=== PATIENT | male | born 1960 | race Caucasian/White ===

== ENCOUNTER → 2019-07-24 08:51 | Outpatient (CLI) | payer OTHER, SELFPAY ==
[2019-07-24 10:57] LABS: Alanine Aminotransferase 36 IU/L (<50); Albumin 4.4 g/dL (3.5-5.0); Albumin Globulin Ratio 1.4 (1.0-2.8); Alkaline Phosphatase 56 U/L (38-126); Aspartate Aminotransferase 29 IU/L (17-59); BUN Creatinine Ratio 26.3 (6-22); Bilirubin Total 0.8 mg/dL (0.2-1.3); Blood Urea Nitrogen 21 mg/dL (9-20); Calcium 9.4 mg/dL (8.4-10.2); Carbon Dioxide 30 mmol/L (22-32); Chloride 103 mmol/L (98-107); Cholesterol 213 mg/dL (140-199); Estimated Glomerular Filt Rate > 60.0 mL/min (>60); Globulin 3.2 g/dL (1.7-4.1); Glucose 134 mg/dL (70-100); HDL Cholesterol 45 mg/dL (40-60); HEMOLYSIS < 15 (0-50); LDL Cholesterol Calculated 153 mg/dL (<100); Sodium 141 mmol/L (137-145); Total Protein 7.6 g/dL (6.3-8.2); Triglycerides 75 mg/dL (35-150)
[2019-07-29 13:54] LABS: PSA Free % 20 % (calc) (> 25); PSA, Total 1.5 ng/mL (< 4.1)
== END ==
PROVIDERS: Family Provider Internal Medicine; PCP Internal Medicine; Referring Provider Internal Medicine; Visit Provider Internal Medicine
DX: R03.0 Elevated blood-pressure reading, without diagnosis of hypertension (principal); N40.1 Benign prostatic hyperplasia with lower urinary tract symptoms
CPT/HCPCS: 36415; 80053; 80061; 84153; 84154

== ENCOUNTER → 2019-09-24 13:01 | Outpatient (CLI) | payer OTHER, SELFPAY ==
[2019-09-24 13:44] LABS: Hemoglobin A1C% w Est Avg Glu 5.8 % (4.0-6.0)
== END ==
PROVIDERS: Family Provider Internal Medicine; PCP Internal Medicine; Referring Provider Internal Medicine; Visit Provider Internal Medicine
DX: R73.9 Hyperglycemia, unspecified (principal)
CPT/HCPCS: 36415; 83036

== ENCOUNTER → 2020-07-29 09:32 | Outpatient (CLI) | payer OTHER, SELFPAY ==
[2020-07-29 11:35] LABS: Appearance Urine UA CLEAR; Bilirubin Urine UA NEGATIVE (NEGATIVE); Color Urine UA YELLOW; Glucose Urine UA NEGATIVE (Negative); Ketones Urine UA NEGATIVE (NEGATIVE); Leukocyte Esterase Urine UA NEGATIVE (NEGATIVE); Nitrite Urine UA NEGATIVE (Negative); Occult Blood Urine UA NEGATIVE (Negative); Protein Urine UA NEGATIVE (Negative); Urobilinogen Urine UA 0.2 E.U./dL (0.2)
[2020-07-29 11:39] LABS: Alanine Aminotransferase 52 IU/L (<50); Albumin 4.2 g/dL (3.5-5.0); Albumin Globulin Ratio 1.4 (1.0-2.8); Alkaline Phosphatase 70 U/L (38-126); Aspartate Aminotransferase 36 IU/L (17-59); BUN Creatinine Ratio 27.2 (6-22); Bilirubin Total 0.4 mg/dL (0.2-1.3); Blood Urea Nitrogen 22 mg/dL (9-20); Calcium 9.3 mg/dL (8.4-10.2); Carbon Dioxide 29 mmol/L (22-32); Chloride 101 mmol/L (98-107); Cholesterol 185 mg/dL (140-199); Estimated Glomerular Filt Rate > 60.0 mL/min (>60); Glucose 110 mg/dL (80-110); HDL Cholesterol 44 mg/dL (40-60); HEMOLYSIS < 15 (0-50); LDL Cholesterol Calculated 122 mg/dL (<100); Potassium 4.5 mmol/L (3.4-5.1); Sodium 137 mmol/L (137-145); Total Protein 7.2 g/dL (6.3-8.2); Triglycerides 93 mg/dL (35-150)
[2020-07-29 12:10] LABS: Prostate Specific Antigen Scrn 1.71 ng/mL (0.1-4.0)
[2020-07-29 12:13] LABS: Hematocrit 42.8 % (41-53); Hemoglobin 14.8 g/dL (13.5-17.5); Mean Corpuscular HGB Conc 34.5 % (30-36); Mean Corpuscular Hemoglobin 28.4 PG (26-34); Mean Corpuscular Volume 82.3 fL (80-100); Platelet Count 295 X10^3/uL (150-400); Red Cell Distribution Width 13.2 % (11.6-14.8); White Blood Cell Count 3.9 X10^3/uL (4.5-11.0)
[2020-07-29 12:15] LABS: Add Manual Diff / Slide Review YES
[2020-07-29 12:40] LABS: Neutrophils Absolute Manual 2145 /uL (3000-5900); Total Cells Counted 100
[2020-07-29 12:41] LABS: Smudge Cells 1+
== END ==
PROVIDERS: Family Provider Internal Medicine; PCP Registered Nurse; Referring Provider Registered Nurse; Visit Provider Registered Nurse
DX: R35.0 Frequency of micturition (principal); N40.0 Benign prostatic hyperplasia without lower urinary tract symptoms; R73.01 Impaired fasting glucose; Z00.00 Encounter for general adult medical examination without abnormal findings; Z12.5 Encounter for screening for malignant neoplasm of prostate; E78.5 Hyperlipidemia, unspecified
CPT/HCPCS: 36415; 80053; 80061; 81003; 85007; 85025; G0103

== ENCOUNTER → 2020-08-18 07:41 | Outpatient (CLI) | payer OTHER, SELFPAY ==
[2020-08-18] MEDS: COVID-19 VACC #1, MRNA(MOD) 100 MCG/0.5 ML VIAL IM (07:48)
== END ==
PROVIDERS: Family Provider Internal Medicine; PCP Registered Nurse; Visit Provider Internal Medicine
DX: Z23 Encounter for immunization (principal)
CPT/HCPCS: 0011A; 91301

== ENCOUNTER → 2020-09-15 07:47 | Outpatient (CLI) | payer OTHER, SELFPAY ==
[2020-09-15] MEDS: COVID-19 VACC #2, MRNA(MOD) 100 MCG/0.5 ML VIAL IM (07:54)
== END ==
PROVIDERS: Family Provider Internal Medicine; PCP Registered Nurse; Visit Provider Internal Medicine
DX: Z23 Encounter for immunization (principal)
CPT/HCPCS: 0012A; 91301

== ENCOUNTER → 2020-09-20 08:58 | Outpatient (CLI) | payer OTHER, SELFPAY ==
[2020-09-20 13:21] LABS: COVID19 -Nasal RAPID Negative (Negative)
== END ==
PROVIDERS: Family Provider Internal Medicine; PCP Registered Nurse; Visit Provider Surgery
DX: Z20.822 Contact with and (suspected) exposure to COVID-19 (principal)
CPT/HCPCS: 87635; C9803

== ENCOUNTER 2020-09-21 08:07 | Day surgery (SDC) | payer OTHER, SELFPAY ==
--- NOTE | 2020-09-21 | PATH_ITS ---
[facility] Accession Number: [id number] . 01 Material submitted: . PART A: cecum - CECAL POLYP PART B: colon - POLYP 80CM . 02 Diagnosis: A. Cecal Polyp: Portion of tubular adenoma x1. Portion of hyperplastic polyp x1. . B. Polyp at 80 cm, Biopsy: Portions of tubular adenoma x2. Superficial portion of colorectal mucosa x1 with no significant histomorphologic abnormality. [facility] 09/27/2020 1134 Local . 02 Electronically signed: . Chasity Ahmadi MD, Pathologist NPI- [id number] . 01 Gross description: . Part A: CECAL POLYP: Received in formalin are 2 fragment(s) of judge, soft tissue measuring 0.6 x 0.3 x 0.2 cm to 0.8 x 0.4 x 0.3 cm submitted entirely in 1 cassette(s) Part B: POLYP 80CM: Received in formalin are 3 fragment(s) of judge, soft tissue measuring 0.2 x 0.2 x 0.2 cm to 0.4 x 0.3 x 0.2 cm submitted entirely in 1 cassette(s) /JENNIFER 09/22/20202025 Local . 02 Pathologist provided ICD-10: Z12.11, Z86.010, K63.5 . 02 CPT . 622380, [id number] Performed at: 01 [facility] [address] [facility], [place], [place] [id number] MD Layo Howard MD Phone: [phone] Performed at: 02 [facility] [place] [address] [place], [place] [id number] MD Heather Lerma MD Phone: [phone]
[2020-09-21 08:18] VITALS: BP 127/83; PULSE 66; RESP 16; TEMP 36.3; O2SAT 98; BMI 29.8
[2020-09-21] MEDS: SODIUM CHLORIDE 0.9% 1,000 ML 200 ML IV (08:42)
[2020-09-21 08:51] VITALS: BMI 29.8
--- NOTE | 2020-09-21 09:09 | P.HP_ITS ---
History of Present Illness History of Present Illness Date Patient Seen: 09/21/20 Time Patient Seen: 09:09 Chief complaint: DX COLONOSCOPY Narrative: This is a 60-year-old man who is here for a screening colonoscopy. He had his last prior colonoscopy 10 years ago. Two small benign polyps were found and removed. Occasionally has some blood in the stool off and on for about the past year. He denies any rectal pain or any hemorrhoidal swellings. He denies any melena, unexplained abdominal pain, unexplained weight loss. He denies any known family history of colon cancer or colon diseases, but his mother recently from liver disease which he believes began in the colon. ROS: Thirteen system review is otherwise negative other than as mentioned below and in HPI. PE: GENERAL: Well groomed and cooperative. Appears stated age. Answers questions promptly and appropriately. Vital signs noted. HENT: Normocephalic, atraumatic. Hearing intact. EYES: Conjunctiva pink, sclera white, no periorbital swelling. CARDIOVASCULAR: Regular rate. No pedal edema. RESPIRATORY: Non-tachypneic, breathing comfortably on room air. GASTROINTESTINAL: Abdomen soft and non-distended GENITALURINARY: No flank tenderness. MUSCULOSKELETAL: Equal tone and mass bilaterally. SKIN: Warm, dry, soft, appropriate color for ethnicity. No other lesions, rashes, or wounds. NEURO: Alert and Oriented X 3. No gross sensory deficits, or cognitive issues. PSYCH: Appropriate affect and mood. Patient History Medical History Chicken pox (~1967) Headache (~1989) Measles (~1965) Mumps (~1966) Partial blindness (~1959) Plantar warts (~1971) Surgical History Anesthesia History of eye surgery [place] teeth removed (~1973) Family & Social History Family History Father Cancer History of heart disease Mother Cancer Diabetes mellitus Grandfather History of heart disease Grandfather History of heart disease Grandmother History of heart disease Social History: household members spouse Tobacco & Substance use: Smoking Status Never smoker alcohol intake current alcohol intake frequency a few times a week Substance Use Type does not use Meds Home Medications and Allergies Allergies Allergy/AdvReac Type Severity Reaction Status Date / Time No Known Drug Allergies Allergy Verified 09/21/20 08:16 Exam Vital Signs (past 8 hours): - 09/21/20 08:18 Temperature 97.3 F L Pulse Rate 66 Respiratory Rate 16 Blood Pressure 127/83 Pulse Oximetry 98 Oxygen Delivery Method Room Air Assessment & Plan Assessment and plan (1) History of colon polyps: Status: Chronic Assessment & Plan narrative: Risks and benefits of screening colonoscopy and possible polypectomy were discussed with the patient including risk of bleeding, perforation, need for additional procedures, risks of anesthesia. The patient desires to proceed with the colonoscopy procedure. COVID-19 COVID-19 status: Negative Result date/Date tested (Pos, Neg/Pending): 09/20/20 Time Spent With Patient Time with patient: 15-24 minutes Quality VTE Deep Vein Thrombosis/Pulmonary Embolism Present on Admission: No
[2020-09-21] MEDS: MIDAZOLAM 5 MG/5 ML VIAL IV (09:30)
[2020-09-21] MEDS: fentaNYL 250 MCG/5 ML INJ IV (09:30)
--- NOTE | 2020-09-21 09:35 | SUR.OPER ---
GLASSES IN LABELED CASE TO PACU WITH PATIENT
--- NOTE | 2020-09-21 09:40 | P.OP.ENDO_ITS ---
Operative Date/Time/Diagnoses Date of procedure: 09/21/20 Time of procedure: 09:40 Pre-op diagnosis: Personal history colon polyps Post-op diagnosis: other (3 new polyps on this exam) Procedure & Clinicians Study performed: Colonoscopy Procedural sedation performed by the endoscopist Polypectomy x3 with Jumbo forceps and hot snare Same procedure as scheduled: Yes Indications: Personal history colon polyps Surgeon: Ara Wood Procedure Notes SCOAP/Timeout: Performed Procedure in detail: The patient was brought to the room and placed in left lateral decubitus position with all bony prominences padded. A time-out was performed and then the patient was given procedural sedation starting with 4 mg of Versed and 100 mcg of fentanyl. An additional 1 mg of Versed and 50 micro g of fentanyl were given during the procedure. Vitals were monitored throughout the procedure and remained stable. Once adequately sedated, the procedure was begun. A rectal exam was performed revealing no abnormalities. The colonoscope was then introduced to the rectum and advanced to the cecum in the usual fashion. The cecum was identified by the appendiceal orifice, the mucosal tri- fold, and the ileocecal valve. The scope was then retracted while rotating side to side and examining each mucosal fold. Three polyps were found, 1 in the cecum, and 2 at 80 cm. They were removed with hot snare and Jumbo forceps. At the conclusion of the procedure retroflexion was performed and small grade 1-2 internal hemorrhoids without stigmata of bleeding were seen. The scope was then withdrawn from the rectum the procedure was concluded. The patient tolerated the procedure well and was transferred to the PACU in stable condition. Scope withdrawal time: 13 Sedation minutes: 20 Findings: polyp Specimen(s): none sent (Polyps) Complications: none Impression: Three adenomatous benign/precancerous appearing polyps were found in the right side of the colon and removed Post-procedure Recommendations: Colonscopy in 5 years (Depending on pathology results) Follow up: as needed Disposition: PACU
[2020-09-21 09:44] VITALS: BP 119/87; PULSE 78; RESP 15; TEMP 36.3; O2SAT 94
[2020-09-21 09:48] VITALS: BP 116/85; PULSE 79; RESP 12; O2SAT 95
[2020-09-21 09:54] VITALS: BP 122/82; PULSE 76; RESP 14; TEMP 36.8; O2SAT 95
[2020-09-21 09:57] VITALS: BP 116/86; PULSE 71; RESP 12; O2SAT 95
[2020-09-21 10:10] VITALS: BP 116/91; PULSE 80; RESP 12; TEMP 36.6; O2SAT 95
== END 2020-09-21 10:15 | disposition home or self-care (01) ==
LOC: ENDO 08:09
PROVIDERS: Family Provider Internal Medicine; PCP Registered Nurse; Referring Provider Registered Nurse; Visit Provider Surgery
PROC: 0DJD8ZZ Inspection of Lower Intestinal Tract, Via Natural or Artificial Opening Endoscopic (ICD-10-PCS; CPT 45378; principal; 2020-09-21 09:15)
DX: Z12.11 Encounter for screening for malignant neoplasm of colon (principal); Z86.010 Personal history of colon polyps; K64.0 First degree hemorrhoids; D12.0 Benign neoplasm of cecum; D12.6 Benign neoplasm of colon, unspecified
CPT/HCPCS: 45380; 99152; J2250; J3010

== ENCOUNTER → 2024-01-12 13:54 | Outpatient (CLI) | payer OTHER, SELFPAY | PROVIDERS: Family Provider Internal Medicine; PCP Physician Assistant; Referring Provider Urology; Visit Provider Urology | DX: R97.20 Elevated prostate specific antigen [PSA] (principal) | CPT/HCPCS: 36415; 84153; 84154 ==

== ENCOUNTER → 2025-02-09 16:18 | Outpatient (CLI) | payer OTHER, SELFPAY ==
--- NOTE | 2025-02-09 16:19 | DI.MRI.S_ITS ---
PROCEDURE: MR BRAIN (IAC) WWO CON INDICATIONS: sensorineural hearing loss TECHNIQUE: Noncontrast sagittal T1 spin echo, axial FLAIR, axial gradient echo, axial diffusion and ADC through the brain. Axial thin-slice 3D CISS, coronal TruFISP, axial T1 spin echo with fat saturation through the internal auditory canals. After the administration of contrast, thin slice axial and coronal T1 spin echo with fat saturation through the internal auditory canals, and axial and coronal and sagittal T1 spin echo with fat saturation through the brain. COMPARISON: None. FINDINGS: Image quality: Excellent. Cerebellopontine angles: No cerebellopontine angle masses. Inner ear structures appear normally formed. No suspicious enhancement in the internal auditory canal or along the course of the 7th cranial nerve. CSF spaces: Ventricles are normal in size and shape. No extra-axial fluid collections. Basal cisterns are patent. Brain: No intracranial bleeds or mass effects. Farr-white matter interface is intact. No abnormal intracranial enhancement. Diffusion weighted images demonstrate no acute ischemic insults. Brainstem appears normal. Normal intravascular flow voids are present. Skull and face: Calvarial marrow signal is normal. Orbits appear normal. Sinuses: [id number] mucosal thickening can be seen within the right maxillary sinus. Milder mucosal thickening can be seen elsewhere within the paranasal sinuses. No abnormal fluid is seen within the mastoid air cells. IMPRESSION: No significant abnormality is seen. Specifically, no masses or abnormal enhancement are seen within the cerebellopontine angle cisterns or within the internal auditory canals. Dictated by: Reynaldo Garnica M.D. on 02/09/2025 at 17:22 Approved by: Reynaldo Garnica M.D. on 02/09/2025 at 17:24
== END ==
LOC: MRI 16:19
PROVIDERS: Family Provider Internal Medicine; PCP Physician Assistant; Referring Provider Physician Assistant; Visit Provider Otolaryngology
DX: H90.3 Sensorineural hearing loss, bilateral (principal)
CPT/HCPCS: 70553; A9579